=== PATIENT | female | born 1950 | race Hispanic/Latino ===

== ENCOUNTER → 2018-10-08 | Outpatient (CLI) | payer MEDICARE ==
[2018-10-08 14:07] VITALS: BP 157/87
--- NOTE | 2018-10-08 14:17 | NUR ---
Avulsion of nail plate done by Dr. Gutiérrez. No anesthetic used. Tolerated well. Addendum: 10/08/18 at 1418 by FRED THORNTON RN [facility] Amended: Links added.
== END | disposition home or self-care (01) ==
LOC: WHH 08:56
PROVIDERS: ATTEND Podiatrist Foot & Ankle Surgery
DX: L97.511 Non-pressure chronic ulcer of other part of right foot limited to breakdown of skin (principal); L60.0 Ingrowing nail; I73.89 Other specified peripheral vascular diseases; G62.9 Polyneuropathy, unspecified; I69.859 Hemiplegia and hemiparesis following other cerebrovascular disease affecting unspecified side
CPT/HCPCS: 11730; G0463

== ENCOUNTER 2018-10-22 09:15 | Outpatient (CLI) | payer MEDICARE ==
[2018-10-22 15:37] VITALS: BP 123/67
== END 2018-10-22 16:40 | disposition home or self-care (01) ==
LOC: WHH 09:15
PROVIDERS: ATTEND Podiatrist Foot & Ankle Surgery
DX: L97.511 Non-pressure chronic ulcer of other part of right foot limited to breakdown of skin (principal); L60.0 Ingrowing nail; I73.89 Other specified peripheral vascular diseases; G62.9 Polyneuropathy, unspecified; I69.959 Hemiplegia and hemiparesis following unspecified cerebrovascular disease affecting unspecified side
CPT/HCPCS: G0463